=== PATIENT | female | born 1950 | race Caucasian/White ===

== ENCOUNTER 2017-06-16 07:44 | Day surgery (SDC) | payer MEDICARE, BC ==
[~2017-06-16 07:44] MED LIST: Dexamethasone 4 MG/ML SDV ONE; Lactated Ringers 1,000 ML IV SCH; Lactated Ringers 1,000 ML ONE; Lidocaine 1% 4 ML ONE; Lidocaine 1%/Sod Bicarbonate in NS 8.4% 1 ML Syringe PRN; Midazolam 1 MG/ML 2 ML SDV ONE; Ondansetron 4 MG/2 ML SDV ONE; Propofol 200 MG/20 ML SDV ONE; Sodium Chloride 0.9% 10 ML Syringe FLUSH PRN; fentaNYL 100 MCG/2 ML SDV ONE
--- NOTE | 2017-06-16 08:22 | PCM.PREANE ---
Preanesthetic Assessment - Anesthesia/Transfusion/Family Hx Anesthesia History: Prior Anesthesia Without Reaction Family History of Anesthesia Reaction: No - Review of Systems General: No Symptoms Pulmonary: No Symptoms Cardiovascular: No Symptoms Gastrointestinal: No Symptoms Neurological: No Symptoms Other: Reports: None - Physical Assessment NPO Status Date: 06/15/17 NPO Status Time: 20:00 O2 Sat by Pulse Oximetry: 95 Respiratory Rate: 16 Vital Signs: Last Vital Signs Temp 36.7 C 06/16/17 06:55 Pulse 66 06/16/17 06:55 Resp 16 06/16/17 06:55 BP 153/75 H 06/16/17 06:55 Pulse Ox 95 06/16/17 06:55 Height: 1.61 m Weight: 81.193 kg ASA Class: 2 Mental Status: Alert & Oriented x3 Dentition: Reports: Normal Dentition Thyro-Mental Finger Breadths: 3 Mouth Opening Finger Breadths: 3 ROM/Head Extension: Full Lungs: Clear to Auscultation, Normal Respiratory Effort Cardiovascular: Regular Rate (History of intermitent Afib), Regular Rhythm - Lab Values: Laboratory Last Values WBC 8.46 K/mm3 (3.98-10.04) 06/14/17 09:07 RBC 4.90 M/mm3 (3.98-5.22) 06/14/17 09:07 Hgb 14.9 gm/L (11.2-15.7) 06/14/17 09:07 Hct 46.0 % (34.1-44.9) H 06/14/17 09:07 MCV 93.9 fl (79.4-94.8) 06/14/17 09:07 MCH 30.4 pg (25.6-32.2) 06/14/17 09:07 MCHC 32.4 g/dl (32.2-35.5) 06/14/17 09:07 RDW Std Deviation 45.8 fL (36.4-46.3) 06/14/17 09:07 Plt Count 310 K/mm3 (182-369) 06/14/17 09:07 MPV 10.3 fl (9.4-12.3) 06/14/17 09:07 Neut % (Auto) 70.5 % (34.0-71.1) 06/14/17 09:07 Lymph % (Auto) 22.0 % (19.3-51.7) 06/14/17 09:07 [place] % (Auto) 5.8 % (4.7-12.5) 06/14/17 09:07 Eos % (Auto) 1.1 (0.7-5.8) 06/14/17 09:07 Baso % (Auto) 0.4 % (0.1-1.2) 06/14/17 09:07 Neut # (Auto) 5.97 K/mm3 (1.56-6.13) 06/14/17 09:07 Lymph # (Auto) 1.86 K/mm3 (1.18-3.74) 06/14/17 09:07 [place] # (Auto) 0.49 K/mm3 (0.24-0.36) H 06/14/17 09:07 Eos # (Auto) 0.09 K/mm3 (0.04-0.36) 06/14/17 09:07 Baso # (Auto) 0.03 K/mm3 (0.01-0.08) 06/14/17 09:07 Blood Type A POSITIVE 06/14/17 09:07 Gel Antibody Screen Negative 06/14/17 09:07 - Allergies Allergies/Adverse Reactions: Allergies Allergy/AdvReac Type Severity Reaction Status Date / Time sulfamethoxazole Allergy Rash Verified 06/15/17 16:18 [From Bactrim] trimethoprim [From Bactrim] Allergy Rash Verified 06/15/17 16:18 - Anesthesia Plan Beta Eve: Atenolol Med Last Dose Date: 06/16/17 Med Last Dose Time: 08:30 - Acknowledgements Anesthesia Type Planned: General Anesthesia Pt an Appropriate Candidate for the Planned Anesthesia: Yes Alternatives and Risks of Anesthesia Discussed w Pt/Guardian: Yes Pt/Guardian Understands and Agrees with Anesthesia Plan: Yes PreAnesthesia Questionnaire HEENT History: Reports: Cataract, Epistaxis, Other (See Below) Other HEENT History: bilateral cerumen impaction Cardiovascular History: Reports: Afib, High Cholesterol, Hypertension Respiratory History: Reports: None Gastrointestinal History: Reports: GERD, Hemorrhoids Genitourinary History: Reports: Other (See Below) Other Genitourinary History: hematuria FUNCTIONAL DIRECTOR History: Reports: , Other (See Below) Other OB/BYN History: post menopausal bleeding Musculoskeletal History: Reports: None Other Musculoskeletal History: KNEES HURT Neurological History: Reports: None Psychiatric History: Reports: None Endocrine/Metabolic History: Reports: None Hematologic History: Reports: None Immunologic History: Reports: None Oncologic (Cancer) History: Reports: None Dermatologic History: Reports: None - Infectious Disease History Infectious Disease History: Reports: Measles, Mumps - Past Surgical History Head Surgeries/Procedures: Reports: None Respiratory Surgical History: Reports: None Endocrine Surgical History: Reports: None Neurological Surgical History: Reports: None Musculoskeletal Surgical History: Reports: None Oncologic Surgical History: Reports: None Dermatological Surgical History: Reports: None - SUBSTANCE USE Smoking Status *Q: Never Smoker Tobacco Use Within Last Twelve Months: No Second Hand Smoke Exposure: Yes Recreational Drug Use History: No - HOME MEDS Home Medications: Home Meds Bisoprolol Fumarate/HCTZ [Ziac 10-6.25 MG] 1 tab PO DAILY 02/11/16 [History] Lisinopril 5 mg PO DAILY 02/11/16 [History] Pravastatin [Pravachol] 20 mg PO DAILY 02/11/16 [History] Rivaroxaban [Xarelto] 20 mg PO BEDTIME #30 tablet 02/12/16 [Rx] Flecainide Acetate 50 mg PO BID 06/15/17 [History] - CURRENT (IN HOUSE) MEDS Current Meds: Current Medications Lactated Ringer's (Ringers, Lactated) 1,000 mls @ 125 mls/hr IV ASDIRECTED LUCI Stop: 06/16/17 23:00 Lidocaine/Sodium Bicarbonate (Buffered Lidocaine 1% In Ns 8.4%) 0.25 ml .XX ONETIME PRN PRN Reason: Prior to IV Start Stop: 06/16/17 18:00 Sodium Chloride (Saline Flush) 10 ml FLUSH ASDIRECTED PRN PRN Reason: Keep Vein Open Stop: 06/16/17 18:00 Discontinued Medications Dexamethasone (Dexamethasone) Confirm Administered Dose 4 mg .ROUTE .STK-MED ONE Stop: 06/16/17 07:09 Fentanyl (Sublimaze) Confirm Administered Dose 100 mcg .ROUTE .STK-MED ONE Stop: 06/16/17 07:10 Lactated Ringer's (Ringers, Lactated) Confirm Administered Dose 1,000 mls @ as directed .ROUTE .STK-MED ONE Stop: 06/16/17 07:09 Lidocaine HCl (Xylocaine-Mpf 1%) Confirm Administered Dose 4 mls @ as directed .ROUTE .STK-MED ONE Stop: 06/16/17 07:10 Midazolam HCl (Versed 1 Mg/Ml) Confirm Administered Dose 2 mg .ROUTE .STK-MED ONE Stop: 06/16/17 07:10 Ondansetron HCl (Zofran) Confirm Administered Dose 4 mg .ROUTE .STK-MED ONE Stop: 06/16/17 07:09 Propofol (Diprivan 20 Ml) Confirm Administered Dose 400 mg .ROUTE .STK-MED ONE Stop: 06/16/17 07:10
[2017-06-16] MEDS ORDERED: Atenolol 50 MG Tab PO ONE (08:30)
[2017-06-16] MEDS ORDERED: Ketamine 500 mg/10 ML MDV ONE (09:05)
[2017-06-16] MEDS ORDERED: Propofol 200 MG/20 ML SDV ONE ×2 (09:07→09:25)
[2017-06-16] MEDS ORDERED: Ketorolac 30 MG/ML SDV ONE (09:40)
--- NOTE | 2017-06-16 09:45 | PCM.OPNOTE ---
- General Post-Op/Procedure Note Date of Surgery/Procedure: 06/16/17 Operative Procedure(s): Dilatation and curettage and hysteroscopy 82731 Pre Op Diagnosis: Postmenopausal bleeding N95.0 Post-Op Diagnosis: Same plus endometrial polyp N84.0 Anesthesia Technique: General LMA Primary Surgeon: Azael Maria Anesthesia Provider: [facility] Administrator: Mala Almendarez) Fluid Replacement, Intraop: 1,300 EBL in mLs: 2 Drain/Tube Comments:: None Complications: None Condition: Good Free Text/Narrative:: Patient was transported to operating room #1 and placed under laryngeal mask anesthesia, prepared and draped in a sterile fashion, and placed in the low dorsal lithotomy position SCDs in place and functioning prior surgery Ancef 2 g given intravenously prior surgery. Timeout performed confirming name date of and procedure as D&C and hysteroscopy. Examination under anesthesia revealed normal size uterus no adnexal masses the uterus sounded to 8 cm. The hysteroscope was introduced to the already dilated cervix and examination of the endometrial cavity revealed multiple polyps (2) and utilizing uterine polyp forceps and Kaushik stone forceps and curettage these polyps and stalks were removed the endometrial cavity itself was atrophic both tubal ostia were visualized and appeared normal albeit one polyp appeared to be regressing from the patient's left tubal ostium. One polyp had a blanched white appearance ( patient's right side) and one polyp had a more erythematous appearance (patient' s left side) all tissue was sent to pathology for tissue evaluation. No excessive bleeding blood loss being approximately 1 mL. Procedure lasted 27 minutes. Patient received Toradol 15 mg IV. Patient transported postanesthesia care unit in satisfactory condition. One set of pictures taken 14 images total. Image 001 shows the pale polyp on the patient's right side image 002 shows erythematous polyp on the patient's left side image 003 shows another view of that erythematous polyp image 004 shows a blast polyp in the background and the internal cervical os in the foreground. Image 005 shows the right tubal ostium. Image 006 is blurred but shows the blanched polyp. Image 007 shows the patient's right side of the endometrial cavity where the blast polyp has been removed. Image 008 shows a portion of the stalk of the polyp on the left side. Image 009 additional view of the polyp stalk on the patient's left side with an air bubble in the foreground from -11. Image 010 is blurred due to blood. Image 011 shows the stalk on the polyp on the left side. Image 012 shows a stalk on the patient's left side. Image 013 shows a small portion the polyp stalk remaining on the left side image 014 shows the polyp stalk is been removed.
--- NOTE | 2017-06-16 09:46 | PCM.POSTAN ---
POST ANESTHESIA ASSESSMENT - MENTAL STATUS Mental Status: Alert, Oriented - VITAL SIGNS Pulse Rate: 64 SaO2: 97 Resp Rate: 14 Blood Pressure: 101/65 Temperature: 36.2 C - RESPIRATORY Respiratory Status: Respiratory Rate WNL, Airway Patent, O2 Saturation Stable, Supplemental Oxygen - CARDIOVASCULAR CV Status: Pulse Rate WNL, Blood Pressure Stable - GASTROINTESTINAL GI Status: No Symptoms - PAIN Pain Score: 0 - POST OP HYDRATION Hydration Status: Adequate & Stable
[2017-06-16] MEDS ORDERED: Acetaminophen 325 MG Tab PO ONE (10:49)
[2017-06-16 15:06] VITALS: BP 153/65
== END 2017-06-16 12:07 | disposition home or self-care (01) ==
LOC: JD.SDS 07:44
PROVIDERS: ATTEND Obstetrics & Gynecology
DX: N84.0 Polyp of corpus uteri (principal); I10 Essential (primary) hypertension; E78.00 Pure hypercholesterolemia, unspecified; E78.5 Hyperlipidemia, unspecified; K21.9 Gastro-esophageal reflux disease without esophagitis; I48.91 Unspecified atrial fibrillation; Z88.1 Allergy status to other antibiotic agents; Z88.2 Allergy status to sulfonamides; Z79.899 Other long term (current) drug therapy; Z98.890 Other specified postprocedural states; Z87.891 Personal history of nicotine dependence
CPT/HCPCS: 36415; 58558; 85025; 86850; 86900; 86901; 88305; 93005; 99214; A9270; J1100; J1885; J2250; J2405; J3010; J7120; 00952; J2704

== ENCOUNTER 2017-09-16 11:57 | Observation (INO) | payer MEDICARE, BC ==
[2017-09-16] MEDS ORDERED: Sodium Chloride 0.9% 10 ML Syringe FLUSH PRN (12:23)
[2017-09-16] MEDS ORDERED: Piperacillin/Tazobactam 4.5 GM in Sodium Chloride 0.9% 100 ML IV ONE (12:23)
[2017-09-16] MEDS ORDERED: Sodium Chloride 0.9% 1,000 ML IV ONE (12:23)
--- NOTE | 2017-09-16 13:21 | EDM.PDOC ---
ED HPI GENERAL MEDICAL PROBLEM - General Chief Complaint: Gastrointestinal Problem Stated Complaint: Appendicitis Time Seen by Provider: 09/16/17 12:40 Source of Information: Reports: Patient, Old Records, Provider (from [facility]), RN Notes Reviewed History Limitations: Reports: No Limitations - History of Present Illness INITIAL COMMENTS - FREE TEXT/NARRATIVE: 66 year old female presents to the ED, [facility] by [facility], due to ruptured appendicitis found on CT today. The patient reports ongoing abdominal pain, bloating and fevers for a few months. She reports these symptoms have been intermittent since her hysterectomy with Dr. Maria on 06/16/17. She denies any acute onset of abdominal pain in the past few days to week. She does have RLQ tenderness but describes it as mild. She's had intermittent fevers as high as 101-102 at times. Yesterday her temp was in the 99 range. She went to the walk- in clinic today thinking she had a UTI. She was recently treated with Keflex for a UTI and says her abdominal symptoms improved but returned once she stopped the antibiotics. Records sent [facility] provider gave telephone report to Dr. Tidwell. CT abdomen/pelvis report as follows: acute appendicitis with probable rupture. There is a 4x3x5 cm right lower quadrant abscess. CBC: WBC 13.8, seg neut 11.9. BMP:Glucose 169, BUN 10, creatinine 0.9, Na 138, K 4.2, anion gap 14 UA: Positive for blood (large), nitrites, leukocytes (large), and > 200 WBCs, bacteria many. She is on Xarelto for a.fib. Last dose was 09/15/17. Last PO intake was prune juice this morning and oral contrast for her CT. Otherwise no oral intake today. - Related Data Allergies Allergy/AdvReac Type Severity Reaction Status Date / Time sulfamethoxazole Allergy Rash Verified 09/16/17 12:22 [From Bactrim] trimethoprim [From Bactrim] Allergy Rash Verified 09/16/17 12:22 Home Meds: Home Meds Bisoprolol Fumarate/HCTZ [Ziac 10-6.25 MG] 1 tab PO DAILY 02/11/16 [History] Lisinopril 5 mg PO DAILY 02/11/16 [History] Pravastatin [Pravachol] 20 mg PO DAILY 02/11/16 [History] Rivaroxaban [Xarelto] 20 mg PO BEDTIME #30 tablet 02/12/16 [Rx] Flecainide Acetate 50 mg PO BID 06/15/17 [History] Past Medical History HEENT History: Reports: Cataract, Epistaxis, Other (See Below) Other HEENT History: bilateral cerumen impaction Cardiovascular History: Reports: Afib, High Cholesterol, Hypertension Respiratory History: Reports: None Gastrointestinal History: Reports: GERD, Hemorrhoids, Other (See Below) Other Gastrointestinal History: appendicitis Genitourinary History: Reports: Other (See Below) Other Genitourinary History: hematuria RN NEONATAL History: Reports: , Other (See Below) Other OB/BYN History: post menopausal bleeding Musculoskeletal History: Reports: None Other Musculoskeletal History: KNEES HURT Neurological History: Reports: None Psychiatric History: Reports: None Endocrine/Metabolic History: Reports: None Hematologic History: Reports: None Immunologic History: Reports: None Oncologic (Cancer) History: Reports: None Dermatologic History: Reports: None - Infectious Disease History Infectious Disease History: Reports: Measles, Mumps - Past Surgical History Head Surgeries/Procedures: Reports: None Respiratory Surgical History: Reports: None Endocrine Surgical History: Reports: None Neurological Surgical History: Reports: None Musculoskeletal Surgical History: Reports: None Oncologic Surgical History: Reports: None Dermatological Surgical History: Reports: None Social & Family History - Family History Family Medical History: Noncontributory - Tobacco Use Smoking Status *Q: Never Smoker Second Hand Smoke Exposure: Yes - Caffeine Use Caffeine Use: Reports: None - Recreational Drug Use Recreational Drug Use: No - Living Situation & Occupation Living situation: Reports: , with Spouse Occupation: Retired ED ROS GENERAL - Review of Systems Review Of Systems: See Below Constitutional: Reports: Fever. Denies: Chills Respiratory: Reports: No Symptoms. Denies: Shortness of Breath Cardiovascular: Reports: No Symptoms. Denies: Chest Pain GI/Abdominal: Reports: Abdominal Pain, Distension. Denies: Nausea, Vomiting ED EXAM, GI/ABD - Physical Exam Exam: See Below Exam Limited By: No Limitations General Appearance: Alert, WD/WN, No Apparent Distress Respiratory/Chest: No Respiratory Distress, Lungs Clear, Normal Breath Sounds Cardiovascular: Regular Rate, Rhythm, No Murmur GI/Abdominal Exam: Distended, Guarding, Rigid, Tender (RLQ), Abnormal Bowel Sounds, Other (Hypoactive bowel sounds). No: Mass Back Exam: Normal Inspection, Full Range of Motion. No: CVA Tenderness (L), CVA Tenderness (R) Neurological: Alert, Oriented, Normal Cognition Course - Vital Signs Last Recorded V/S: Last Vital Signs Temp 98.8 F 09/16/17 13:45 Pulse 75 09/16/17 13:45 Resp 18 09/16/17 13:45 BP 130/66 09/16/17 13:45 Pulse Ox 96 09/16/17 13:45 - Orders/Labs/Meds Orders: Active Orders 24 hr Category Date Time Status Peripheral IV Care [RC] . DIRECTED Care 09/16/17 12:23 Active CULTURE BLOOD [BC] Stat Lab 09/16/17 12:50 Received CULTURE BLOOD [BC] Stat Lab 09/16/17 12:55 Received Sodium Chloride 0.9% [Normal Saline] 1,000 ml Med 09/16/17 12:23 Active IV ONETIME Sodium Chloride 0.9% [Saline Flush] Med 09/16/17 12:23 Active 10 ml FLUSH ASDIRECTED PRN metroNIDAZOLE/Normal Saline [Flagyl 500 MG in NS 100 ML Med 09/16/17 13:31 Active ] 500 mg Premix Bag 1 bag IV ONETIME Blood Culture x2 Reflex Set [OM.PC] Stat Oth 09/16/17 12:28 Ordered Peripheral IV Insertion Adult [OM.PC] Stat Oth 09/16/17 12:22 Ordered Medication Orders Sodium Chloride (Normal Saline) 1,000 mls @ 150 mls/hr IV ONETIME ONE Stop: 09/16/17 19:02 Last Admin: 09/16/17 12:42 Dose: 150 mls/hr Metronidazole 500 mg/ Premix 100 mls @ 100 mls/hr IV ONETIME ONE Stop: 09/16/17 14:30 Last Admin: 09/16/17 13:49 Dose: 100 mls/hr Sodium Chloride (Saline Flush) 10 ml FLUSH ASDIRECTED PRN PRN Reason: Keep Vein Open Last Admin: 09/16/17 12:43 Dose: 10 ml Labs: Laboratory Tests 09/16/17 Range/Units 12:50 Lactic Acid 1.0 (0.4-2.0) mmol/L Meds: Medications Generic Name Dose Route Start Last Admin Trade Name Freq PRN Reason Stop Dose Admin Sodium Chloride 1,000 mls @ 150 mls/hr 09/16/17 12:23 09/16/17 12:42 Normal Saline IV 09/16/17 19:02 150 mls/hr ONETIME ONE Administration Metronidazole 500 mg/ Premix 100 mls @ 100 mls/hr 09/16/17 13:31 09/16/17 13: 49 IV 09/16/17 14:30 100 mls/hr ONETIME ONE Administration Sodium Chloride 10 ml 09/16/17 12:23 09/16/17 12:43 Saline Flush FLUSH 10 ml ASDIRECTED PRN Administration Keep Vein Open Discontinued Medications Generic Name Dose Route Start Last Admin Trade Name Freq PRN Reason Stop Dose Admin Piperacillin Sod/Tazobactam 100 mls @ 200 mls/hr 09/16/17 12:23 09/16/17 12: 42 Sod 4.5 gm/ Sodium Chloride IV 09/16/17 12:52 200 mls/hr ONETIME ONE Administration - Re-Assessments/Exams Free Text/Narrative Re-Assessment/Exam: Blood cultures and lactic acid ordered prior to starting antibiotics. Lactic came back WNL at 1.0. Zosyn and Flagyl ordered. General Surgeon consulted upon patient's arrival. 09/16/17 13:35 Dr. Manuel in to see patient. Plan is to admit patient for IV antibiotics and monitoring. Referred for observation. Will defer surgery for now. Departure - Departure Time of Disposition: 14:18 Disposition: Refer to Observation Condition: Fair Clinical Impression: Appendicitis with peritoneal abscess, Ruptured appendicitis - Discharge Information Referrals: Karley Dowling ACID POLYMERIZATION OPERATOR [Primary Care Provider] - Forms: ED Department Discharge - My Orders Last 24 Hours: My Active Orders 09/16/17 12:22 Peripheral IV Insertion Adult [OM.PC] Stat 09/16/17 12:23 Peripheral IV Care [RC] . DIRECTED Sodium Chloride 0.9% [Normal Saline] 1,000 ml IV ONETIME Sodium Chloride 0.9% [Saline Flush] 10 ml FLUSH ASDIRECTED PRN 09/16/17 12:28 Blood Culture x2 Reflex Set [OM.PC] Stat 09/16/17 12:50 CULTURE BLOOD [BC] Stat 09/16/17 12:55 CULTURE BLOOD [BC] Stat 09/16/17 13:31 metroNIDAZOLE/Normal Saline [Flagyl 500 MG in NS 100 ML] 500 mg Premix Bag 1 bag IV ONETIME - Assessment/Plan Last 24 Hours: My Active Orders 09/16/17 12:22 Peripheral IV Insertion Adult [OM.PC] Stat 09/16/17 12:23 Peripheral IV Care [RC] . DIRECTED Sodium Chloride 0.9% [Normal Saline] 1,000 ml IV ONETIME Sodium Chloride 0.9% [Saline Flush] 10 ml FLUSH ASDIRECTED PRN 09/16/17 12:28 Blood Culture x2 Reflex Set [OM.PC] Stat 09/16/17 12:50 CULTURE BLOOD [BC] Stat 09/16/17 12:55 CULTURE BLOOD [BC] Stat 09/16/17 13:31 metroNIDAZOLE/Normal Saline [Flagyl 500 MG in NS 100 ML] 500 mg Premix Bag 1 bag IV ONETIME
[2017-09-16] MEDS ORDERED: metroNIDAZOLE/Normal Saline 500 MG in Premix Bag 1 BAG IV ONE (13:31)
--- NOTE | 2017-09-16 13:46 | PCM.PREANE ---
Preanesthetic Assessment - Anesthesia/Transfusion/Family Hx Anesthesia History: Prior Anesthesia Without Reaction Family History of Anesthesia Reaction: No Transfusion History: No Prior Transfusion(s) Intubation History: Unknown - Review of Systems Cardiovascular: No Symptoms (HTN/Atrial fibrillation- on xarelto last dose 09/15) Gastrointestinal: No Symptoms (GERD) - Physical Assessment NPO Status Date: 09/16/17 Pulse: 75 O2 Sat by Pulse Oximetry: 96 Respiratory Rate: 18 Blood Pressure: 130/66 Temperature: 37.1 C Vital Signs: Last Vital Signs Temp 37.1 C 09/16/17 12:10 Pulse 75 09/16/17 13:11 Resp 18 09/16/17 12:10 BP 130/66 09/16/17 13:11 Pulse Ox 96 09/16/17 13:11 Height: 1.63 m Weight: 79.832 kg ASA Class: 2E Mental Status: Alert & Oriented x3 - Lab Values: Laboratory Last Values Lactic Acid 1.0 mmol/L (0.4-2.0) 09/16/17 12:50 - Imaging/EKG Impressions: EKG: SR rate= 57, consider left atrial enlargement - Allergies Allergies/Adverse Reactions: Allergies Allergy/AdvReac Type Severity Reaction Status Date / Time sulfamethoxazole Allergy Rash Verified 09/16/17 12:22 [From Bactrim] trimethoprim [From Bactrim] Allergy Rash Verified 09/16/17 12:22 - Anesthesia Plan Pre-Op Medication Ordered: Beta Eve Beta Eve: Bisoprolol Med Last Dose Date: 09/16/17 - Acknowledgements Anesthesia Type Planned: General Anesthesia Pt an Appropriate Candidate for the Planned Anesthesia: Yes Alternatives and Risks of Anesthesia Discussed w Pt/Guardian: Yes Pt/Guardian Understands and Agrees with Anesthesia Plan: Yes PreAnesthesia Questionnaire HEENT History: Reports: Cataract, Epistaxis, Other (See Below) Other HEENT History: bilateral cerumen impaction Cardiovascular History: Reports: Afib, High Cholesterol, Hypertension Respiratory History: Reports: None Gastrointestinal History: Reports: GERD, Hemorrhoids, Other (See Below) Other Gastrointestinal History: appendicitis Genitourinary History: Reports: Other (See Below) Other Genitourinary History: hematuria 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: , Other (See Below) Other OB/BYN History: post menopausal bleeding Musculoskeletal History: Reports: None Other Musculoskeletal History: KNEES HURT Neurological History: Reports: None Psychiatric History: Reports: None Endocrine/Metabolic History: Reports: None Hematologic History: Reports: None Immunologic History: Reports: None Oncologic (Cancer) History: Reports: None Dermatologic History: Reports: None - Infectious Disease History Infectious Disease History: Reports: Measles, Mumps - Past Surgical History Head Surgeries/Procedures: Reports: None Respiratory Surgical History: Reports: None Endocrine Surgical History: Reports: None Neurological Surgical History: Reports: None Musculoskeletal Surgical History: Reports: None Oncologic Surgical History: Reports: None Dermatological Surgical History: Reports: None - SUBSTANCE USE Smoking Status *Q: Never Smoker Tobacco Use Within Last Twelve Months: No Second Hand Smoke Exposure: Yes Recreational Drug Use History: No - HOME MEDS Home Medications: Home Meds Bisoprolol Fumarate/HCTZ [Ziac 10-6.25 MG] 1 tab PO DAILY 02/11/16 [History] Lisinopril 5 mg PO DAILY 02/11/16 [History] Pravastatin [Pravachol] 20 mg PO DAILY 02/11/16 [History] Rivaroxaban [Xarelto] 20 mg PO BEDTIME #30 tablet 02/12/16 [Rx] Flecainide Acetate 50 mg PO BID 06/15/17 [History] - CURRENT (IN HOUSE) MEDS Current Meds: Current Medications Sodium Chloride (Normal Saline) 1,000 mls @ 150 mls/hr IV ONETIME ONE Stop: 09/16/17 19:02 Last Admin: 09/16/17 12:42 Dose: 150 mls/hr Metronidazole 500 mg/ Premix 100 mls @ 100 mls/hr IV ONETIME ONE Stop: 09/16/17 14:30 Sodium Chloride (Saline Flush) 10 ml FLUSH ASDIRECTED PRN PRN Reason: Keep Vein Open Last Admin: 09/16/17 12:43 Dose: 10 ml Discontinued Medications Piperacillin Sod/Tazobactam (Sod 4.5 gm/ Sodium Chloride) 100 mls @ 200 mls/hr IV ONETIME ONE Stop: 09/16/17 12:52 Last Admin: 09/16/17 12:42 Dose: 200 mls/hr
[2017-09-16] MEDS: Piperacillin/Tazobactam 4.5 GM in Sodium Chloride 0.9% 100 ML IV SCH ×2 (16:25→22:56)
[2017-09-16] MEDS: metroNIDAZOLE/Normal Saline 500 MG in Premix Bag 1 BAG IV SCH ×2 (16:26→22:56)
[2017-09-16] MEDS: Lactated Ringers 1,000 ML IV SCH (20:09)
[2017-09-16] MEDS: FLECAINIDE 50 MG PO SCH (23:05)
[2017-09-17] MEDS: metroNIDAZOLE/Normal Saline 500 MG in Premix Bag 1 BAG IV SCH (06:55)
[2017-09-17] MEDS: Piperacillin/Tazobactam 4.5 GM in Sodium Chloride 0.9% 100 ML IV SCH ×2 (06:55→15:18)
[2017-09-17] MEDS: LISINOPRIL 5 MG PO SCH (08:32)
[2017-09-17] MEDS: FLECAINIDE 50 MG PO SCH ×2 (08:32→20:34)
[2017-09-17] MEDS: HCTZ PO SCH (08:32)
[2017-09-17] MEDS: BISOPROLOL FUMARATE PO SCH (08:32)
--- NOTE | 2017-09-17 18:12 | HP ---
DATE OF ADMISSION: 09/16/2017 HISTORY OF PRESENT ILLNESS: Aleisha is a 66-year-old female patient, who has a very complex history and examination. She states most of her trouble began at or about or just before she underwent an endometrial biopsy and removal of an endometrial polyp in, I believe, June of this year. Thereafter, she began noticing some discomfort in her right lower abdomen and did not think that much about it. She underwent some lab exams which were not diagnostic, but presented to the emergency room on the day of admission which would be the 16 of September with a painful mass in her right lower quadrant. A CT scan was performed of this, and the final diagnosis is acute appendicitis with probable rupture and a 4 x 3 x 5 cm right lower quadrant abscess. The patient was referred to me because of the possibility of acute appendicitis. The patient denies really having any fever or chills recently or any changes in the digestive habits or changes with her bowel movements other than occasionally she has a little bit of diarrhea. This has been over the past 3-4 months. With these findings, the possibility of this mass that we see in the right lower quadrant on CT scan is right in the area of the appendix and perhaps a portion of the appendix is able to be seen in the mass. It is felt that she does have an abscess cavity there that is right in the area of the appendix, and hence the probability of an appendiceal abscess is entertained. She is not toxic. Her white count is not available at this point, and her vital signs reveal that she is afebrile and normotensive with a normal respiratory rate. At present, the differential diagnosis would be that of a perforated appendix abscess, longstanding, with repeat perforation or whatever or possibility of a malignancy of the distal small bowel in the area of the appendix. At present, my feeling is that she should be admitted, which I am doing, and place her on intravenous antibiotics for at least 48 hours using very potent antibiotics and then sending her home for perhaps a week or so on antibiotics when she is basically asymptomatic and repeat a CT scan at that time. PAST MEDICAL HISTORY: Essentially unremarkable, except for the surgery for the endometrial polyp. REVIEW OF SYSTEMS: Basically unremarkable and noncontributory. She has noted some right lower quadrant discomfort, but it has not increased or decreased, and she has not had any fever or chills. PHYSICAL EXAMINATION: GENERAL: Reveals basically a healthy-appearing 66-year-old female in no acute distress. EYES, EARS, NOSE, AND THROAT: Unremarkable. NECK: Supple. Trachea midline. CHEST: Clear to auscultation. HEART: The rhythm is regular. No murmurs are heard. BREASTS: There are no breast masses. ABDOMEN: Reveals a soft abdomen with a fullness in the right lower quadrant, which is minimally tender. PELVIC: Not performed in lieu of the CT scan. RECTAL: Not performed in lieu of the CT scan being normal. EXTREMITIES: Reveal full peripheral pulses. No edema. No varicosities. NEUROLOGIC: Gross exam. ASSESSMENT: Appendiceal abscess from ruptured acute appendicitis or possibly a neoplastic mass of unknown origin. She will be treated for infectious causes and if these show no response over the next 2 weeks, then perhaps she should have an exploration and removal of that area. CEA is pending. MMODAL /[id number] MTDD
[2017-09-17] MEDS: Lactated Ringers 1,000 ML IV SCH (22:13)
[2017-09-18] MEDS: Piperacillin/Tazobactam 4.5 GM in Sodium Chloride 0.9% 100 ML IV SCH ×2 (00:26→09:35)
--- NOTE | 2017-09-18 07:29 | PN ---
DATE OF SERVICE: 09/17/2017 Aleisha is doing well. She remains afebrile with stable vital signs. Her abdominal examination is slightly improved. She has had no fever, chills, or any other stigmata of inflammatory process. She does have some blood work cooking which has been drawn today since in the ER somehow rather this was overlooked. CBC was ordered as well as CMP and also a CEA. Basically, she is now at around 24 hours of intravenous antibiotics and probably tomorrow after cessation, we can send her home on regular antibiotics and she can be seen again in the Surgery [facility] and probably have a CT performed somewhere in the next 1-2 weeks. She is happy with that, she understands what we are doing, and we will proceed. RUBINA /[id number]
[2017-09-18 09:35] VITALS: BP 141/72
[2017-09-18] MEDS: FLECAINIDE 50 MG PO SCH (09:37)
[2017-09-18] MEDS: HCTZ PO SCH (09:37)
[2017-09-18] MEDS: LISINOPRIL 5 MG PO SCH (09:37)
[2017-09-18] MEDS: BISOPROLOL FUMARATE PO SCH (09:37)
[2017-09-18] MEDS ORDERED: Rivaroxaban 10 MG Tab PO SCH (21:00)
--- NOTE | 2017-09-21 02:26 | DISCH ---
ADMISSION DATE: 09/16/2017 DISCHARGE DATE: 09/18/2017 DISCHARGE DIAGNOSIS: Right lower quadrant mass inflammatory versus neoplastic process. OPERATIONS: None. COURSE IN HOSPITAL: This 66-year-old female was admitted to the emergency room with the diagnosis of acute perforated appendicitis. She presented with signs and symptoms of a right lower quadrant pain which had been present intermittently since June of this year. Her symptoms waxed and waned and got to the point where she could tolerate things and then she would develop problems again. Finally, presented to the emergency room here with symptoms of right lower quadrant discomfort. A CT scan was performed which demonstrated what could well be an appendiceal abscess, which was bland and not of any urgent concern or a possibility of a neoplasm. It was felt that the treatment would be nonoperative at this point and she was placed on 48 hours of Zosyn during which time she remained afebrile. Of import is her white count was normal at 7400 white cells per high-power field and a hemoglobin of 11.2. The patient was admitted, treated with antibiotics and observed, during which time she seemed to be gaining a bit in terms of the abdomen right lower quadrant mass being a little bit softer, but still present. Review of the CT led me to believe that this could possibly be neoplastic because of its bland nature and the fact that her white count is normal. CEA was drawn and now after her discharge this comes back and it is 1.0. Because of the possibilities of this being neoplastic and because of the questions of being somewhat more than we could handle at this facility, arrangements were made for her to see Dr. Jaime's in [place] at [facility] and have her see her in consultation and see what she feels would be the next most obvious approach. The bland nature and the low white count all would go together with the possibility of a neoplasm. However, the CT reading by the radiologist is that of a ruptured appendix. The appointments were made in my presence with Dr. Jaime's office in [place] and so the patient will be seeing her on of this week and she was given Levaquin to take in the interim, 1 daily and to bed rest and maintain her abilities. FINAL DIAGNOSIS: DISCHARGE MEDICATIONS: DIET: ACTIVITY: FOLLOW-UP: CONDITION ON DISCHARGE: MMODAL /[id number]
== END 2017-09-18 16:02 | disposition home or self-care (01) ==
LOC: JD.ED 11:57 → JD.MS 14:52
PROVIDERS: ADMIT Surgery; ATTEND Surgery
DX: K35.3 Acute appendicitis with localized peritonitis (principal); I48.91 Unspecified atrial fibrillation; I10 Essential (primary) hypertension; E78.00 Pure hypercholesterolemia, unspecified; K21.9 Gastro-esophageal reflux disease without esophagitis; Z87.440 Personal history of urinary (tract) infections; Z79.01 Long term (current) use of anticoagulants; Z79.899 Other long term (current) drug therapy; Z88.1 Allergy status to other antibiotic agents; Z88.2 Allergy status to sulfonamides; Z90.710 Acquired absence of both cervix and uterus
CPT/HCPCS: 36415; 80053; 81001; 82378; 83605; 85025; 87040; 96365; 96366; 96368; 99285; A9270; J2543; J7030; J7040; J7050; J7120; 96367; 99284; G0378

== ENCOUNTER 2019-07-02 08:58 | Day surgery (SDC) | payer MEDICARE, BC ==
[~2019-07-02 08:58] MED LIST changes: -Dexamethasone 4 MG/ML SDV ONE; -Lactated Ringers 1,000 ML ONE; +Lidocaine 1%/Sod Bicarbonate in NS 8.4% 1 ML Syringe IDERM PRN; -Lidocaine 1%/Sod Bicarbonate in NS 8.4% 1 ML Syringe PRN; -Midazolam 1 MG/ML 2 ML SDV ONE; -Ondansetron 4 MG/2 ML SDV ONE
--- NOTE | 2019-07-02 10:13 | PCM.PREANE ---
Preanesthetic Assessment - Procedure Proposed Procedure: colonoscopy - Anesthesia/Transfusion/Family Hx Anesthesia History: Prior Anesthesia Without Reaction Transfusion History: No Prior Transfusion(s) Intubation History: Unknown - Review of Systems General: No Symptoms Pulmonary: No Symptoms Cardiovascular: No Symptoms (a fib history ) Gastrointestinal: No Symptoms Neurological: No Symptoms Other: Reports: Easy Bleeding, Easy Bruising - Physical Assessment NPO Status Date: 07/02/19 NPO Status Time: 04:00 Vital Signs: Last Vital Signs Temp 36.2 C 07/02/19 09:25 Pulse 63 07/02/19 09:25 Resp 16 07/02/19 09:25 BP 140/76 07/02/19 09:25 Pulse Ox 96 07/02/19 09:25 Height: 1.63 m Weight: 85.729 kg ASA Class: 3 Mental Status: Alert & Oriented x3 Airway Class: Mallampati = 1 Dentition: Reports: Normal Dentition Thyro-Mental Finger Breadths: 3 Mouth Opening Finger Breadths: 5 ROM/Head Extension: Full Lungs: Clear to Auscultation, Normal Respiratory Effort Cardiovascular: Regular Rate, Regular Rhythm - Allergies Allergies/Adverse Reactions: Allergies Allergy/AdvReac Type Severity Reaction Status Date / Time sulfamethoxazole Allergy Rash Verified 07/01/19 16:34 [From Bactrim] trimethoprim [From Bactrim] Allergy Rash Verified 07/01/19 16:34 - Blood Blood Available: No - Anesthesia Plan Pre-Op Medication Ordered: None - Acknowledgements Anesthesia Type Planned: MAC Pt an Appropriate Candidate for the Planned Anesthesia: Yes Alternatives and Risks of Anesthesia Discussed w Pt/Guardian: Yes Pt/Guardian Understands and Agrees with Anesthesia Plan: Yes PreAnesthesia Questionnaire HEENT History: Reports: Cataract, Epistaxis, Impaired Vision, Other (See Below) Other HEENT History: bilateral cerumen impaction, wears glasses Cardiovascular History: Reports: Afib, High Cholesterol, Hypertension Respiratory History: Reports: None Gastrointestinal History: Reports: GERD, Hemorrhoids, Other (See Below) Other Gastrointestinal History: appendicitis Genitourinary History: Reports: Other (See Below) Other Genitourinary History: hematuria CONTROL CHEMIST History: Reports: , Other (See Below) Other OB/BYN History: post menopausal bleeding, D&C in May 2017 Musculoskeletal History: Reports: Arthritis Other Musculoskeletal History: KNEES HURT Neurological History: Reports: None Psychiatric History: Reports: None Endocrine/Metabolic History: Reports: None Hematologic History: Reports: None Immunologic History: Reports: None Oncologic (Cancer) History: Reports: None Dermatologic History: Reports: None - Infectious Disease History Infectious Disease History: Reports: Chicken Pox, Influenza, Measles, Mumps, Rubella - Past Surgical History Head Surgeries/Procedures: Reports: None HEENT Surgical History: Reports: Cataract Surgery Cardiovascular Surgical History: Reports: None Respiratory Surgical History: Reports: None GI Surgical History: Reports: Colonoscopy Female Surgical History: Reports: D&C Endocrine Surgical History: Reports: None Neurological Surgical History: Reports: None Musculoskeletal Surgical History: Reports: None Oncologic Surgical History: Reports: None Dermatological Surgical History: Reports: None - SUBSTANCE USE Smoking Status *Q: Never Smoker Recreational Drug Use History: No - HOME MEDS Home Medications: Home Meds Bisoprolol Fumarate/HCTZ [Ziac 10-6.25 MG] 1 tab PO DAILY 02/11/16 [History] Lisinopril 5 mg PO DAILY 02/11/16 [History] Pravastatin [Pravachol] 20 mg PO BEDTIME 02/11/16 [History] Rivaroxaban [Xarelto] 20 mg PO BEDTIME #30 tablet 02/12/16 [Rx] Flecainide Acetate 50 mg PO BID 06/15/17 [History] - CURRENT (IN HOUSE) MEDS Current Meds: Current Medications Lactated Ringer's (Ringers, Lactated) 1,000 mls @ 125 mls/hr IV ASDIRECTED LUCI Stop: 07/02/19 23:00 Lidocaine/Sodium Bicarbonate (Buffered Lidocaine 1% In Ns 8.4%) 0.25 ml IDERM ONETIME PRN PRN Reason: Prior to IV Start Stop: 07/02/19 18:00 Sodium Chloride (Saline Flush) 10 ml FLUSH ASDIRECTED PRN PRN Reason: Keep Vein Open Stop: 07/02/19 18:00 Discontinued Medications Fentanyl (Sublimaze) Confirm Administered Dose 100 mcg .ROUTE .STK-MED ONE Stop: 07/02/19 08:33 Lidocaine HCl (Xylocaine-Mpf 1%) Confirm Administered Dose 4 mls @ as directed .ROUTE .STK-MED ONE Stop: 07/02/19 08:32 Propofol (Diprivan 20 Ml) Confirm Administered Dose 200 mg .ROUTE .STK-MED ONE Stop: 07/02/19 08:32
--- NOTE | 2019-07-02 12:28 | PCM48HPAN ---
Post Anesthesia Note - EVALUATION WITHIN 48HRS OF ANESTHETIC Vital Signs in Normal Range: Yes Patient Participated in Evaluation: Yes Respiratory Function Stable: Yes Airway Patent: Yes Cardiovascular Function Stable: Yes Hydration Status Stable: Yes Pain Control Satisfactory: Yes Nausea and Vomiting Control Satisfactory: Yes Mental Status Recovered: Yes Vital Signs: Last Vital Signs Temp 97.1 F 07/02/19 09:25 Pulse 63 07/02/19 09:25 Resp 16 07/02/19 09:25 BP 140/76 07/02/19 09:25 Pulse Ox 96 07/02/19 09:25 1221 63 12 123/60 95% 97.3
[2019-07-02 13:25] VITALS: BP 155/72; PULSE 57
--- NOTE | 2019-07-02 20:31 | OR ---
DATE OF OPERATION: 07/02/2019 SURGEON: Twan Leo MD PREOPERATIVE DIAGNOSIS: Positive Cologuard screen. POSTOPERATIVE DIAGNOSIS: 1. Positive Cologuard screen. 2. Three colon polyps were identified. OPERATION PERFORMED: 1. Diagnostic colonoscopy and snare polypectomy. 2. Ablation of polyp x2. ANESTHESIA: MAC. COMPLICATIONS: None. ESTIMATED BLOOD LOSS: Minimal. DISPOSITION: Stable at the end of the procedure. PATHOLOGY: 1. Cecal polyp. 2. Splenic flexure polyp. 3. Descending colon polyp. INDICATION: Aleisha is a 68-year-old female, 15 years out from her last colonoscopy. She was tested with a Cologuard screen. She tested positive. She was referred for diagnostic colonoscopy. She was fully informed of the major risks of the procedure. These are detailed in my H and P. She gave informed consent. DESCRIPTION OF PROCEDURE: Aleisha was brought to the gastro suite and placed in the left lateral decubitus position. She was given MAC. I performed a digital rectal exam with copious lubrication. This was followed by the introduction of the colonoscope. The scope was advanced with gentle forward pressure, keeping the lumen in view at all times. I documented the cecum photographically, identified a polyp in the cecum between the appendiceal orifice and the ileocecal valve. This was too large to remove with biopsy forceps, so a snare was utilized to resect the polyp at its base. This was evacuated into a trap piecemeal. Once I was done with that portion of the operation, I took several bites at the base of the polyp until a wide margin was resected. All these pieces were removed and sent to Pathology for further examination. Additional polyps were identified on further close examination in the splenic flexure and the descending colon. Both these polyps were removed in their entirety with a biopsy forceps. These were subcentimeter. The polyp in the cecum was approximately 1.5 cm in greatest dimension. At the end of the procedure, the scope was withdrawn. She was awakened from anesthesia and moved to Recovery in stable condition. PLAN: Based on my findings today, she will need another colonoscopy in 3 years. My office will notify her if there is any change. MMODAL /[id number]
== END 2019-07-02 13:30 | disposition home or self-care (01) ==
LOC: JD.SDS 08:58
PROVIDERS: ATTEND Surgery
DX: D12.0 Benign neoplasm of cecum (principal); D12.4 Benign neoplasm of descending colon; D12.3 Benign neoplasm of transverse colon; I10 Essential (primary) hypertension; I48.91 Unspecified atrial fibrillation; K21.9 Gastro-esophageal reflux disease without esophagitis; E78.00 Pure hypercholesterolemia, unspecified; Z88.2 Allergy status to sulfonamides; Z88.1 Allergy status to other antibiotic agents; Z87.891 Personal history of nicotine dependence; Z79.01 Long term (current) use of anticoagulants; Z79.899 Other long term (current) drug therapy
CPT/HCPCS: 45380; 45385; J2001; J2704; J3010; J7120

== ENCOUNTER 2023-02-23 07:23 | Day surgery (SDC) | payer MEDICARE, BC ==
[~2023-02-23 07:23] MED LIST changes: -Lidocaine 1% 4 ML ONE; -Propofol 200 MG/20 ML SDV ONE; +Sodium Chloride 0.9% 10 ML Syringe FLUSH SCH; -fentaNYL 100 MCG/2 ML SDV ONE
[2023-02-23] MEDS ORDERED: fentaNYL 100 MCG/2 ML SDV ONE (07:28)
[2023-02-23] MEDS ORDERED: Propofol 200 MG/20 ML SDV ONE ×2 (07:28→09:11)
[2023-02-23 09:58] VITALS: BP 113/79; PULSE 60
== END 2023-02-23 10:00 | disposition home or self-care (01) ==
LOC: JD.SDS 07:23
PROVIDERS: ATTEND Surgery
DX: Z12.11 Encounter for screening for malignant neoplasm of colon (principal); K64.4 Residual hemorrhoidal skin tags; K64.8 Other hemorrhoids; I10 Essential (primary) hypertension; E78.00 Pure hypercholesterolemia, unspecified; I48.0 Paroxysmal atrial fibrillation; M85.80 Other specified disorders of bone density and structure, unspecified site; M19.90 Unspecified osteoarthritis, unspecified site; Z79.899 Other long term (current) drug therapy; Z86.010 Personal history of colon polyps; Z88.2 Allergy status to sulfonamides; Z98.890 Other specified postprocedural states; Z87.891 Personal history of nicotine dependence
CPT/HCPCS: 00812; 99100; J2704; J3010; J3490; J7120

== ENCOUNTER 2025-08-19 20:56 | Emergency (ER) | payer MEDICARE, BC ==
[2025-08-19 21:19] VITALS: BP 165/70; PULSE 76
== END 2025-08-19 23:29 | disposition home or self-care (01) ==
LOC: JD.ED 20:56
DX: Z48.812 Encounter for surgical aftercare following surgery on the circulatory system (principal); I10 Essential (primary) hypertension; I48.91 Unspecified atrial fibrillation; E78.00 Pure hypercholesterolemia, unspecified; M19.90 Unspecified osteoarthritis, unspecified site; Z79.899 Other long term (current) drug therapy
CPT/HCPCS: 71046; 71046-26; 99283